=== PATIENT | female | born 1945 | race Caucasian/White ===

== ENCOUNTER 2023-08-20 12:50 | Outpatient (AMB) | payer MEDICARE, SELFPAY ==
--- NOTE | 2023-08-20 13:16 | HO.SPINEOV ---
Intake Intake Visit Reasons: sx 12/2021 f/u Intake Note: Ms. Eagle is here today to follow up pain. Surgery done 12/2021 @ [place]. Certified Travel Counselor Required: No Assessment & Plan Assessment & Plan (1) Dizziness of unknown etiology: Code(s): R42 - Dizziness and giddiness Plan Dear colleague, On 08/20/2023, I saw Debbie Eagle for dizziness. She had previous degenerative scoliosis corrected last year with good results. I remember that she had some from her arrhythmia postoperatively. She states that in May of last year she developed acute dizziness where the room was spinning. No other symptoms. She was evaluated by ENT and Neurology at [facility]. She was diagnosed with a trochlear nerve palsy and polyneuropathy. She comes to see me for advice. I explained to her that polyneuropathy is not causing acute dizziness. Apparently no MRI of the brain was performed despite a trochlear palsy and acute dizziness. Her symptoms remain stable. No new symptoms have developed. On exam there is a nystagmus. No diplopia with corrective glasses. Romberg is negative. I offered to order an MRI of the brain to rule out a small infarcted may have happened resulting acute dizziness and trochlear nerve palsy. She will call my office for the results. I spent 25 minutes in this consult for preparation, exam and discussing plan of care. Reji Boyer MD, PhD Spine Fellowship Trained Neurosurgeon Director, [facility] Orders: Orders MR head/brain wo/w con Today R42 - Dizziness and giddiness Coding Level of Care Code Est Pt Level 4 (49259) Diagnoses Dizziness of unknown etiology R42
== END 2023-08-20 13:47 | disposition home or self-care (01) ==
PROVIDERS: Visit Provider Neurological Surgery
DX: R42 Dizziness and giddiness (principal)
CPT/HCPCS: 99214

== ENCOUNTER → 2023-08-20 12:50 | Outpatient (BNVA) | payer MEDICARE, SELFPAY | PROVIDERS: Visit Provider Neurological Surgery | DX: R42 Dizziness and giddiness (principal) | CPT/HCPCS: 99212 ==

== ENCOUNTER 2023-10-08 11:01 | Outpatient (REF) | payer MEDICARE, SELFPAY ==
--- NOTE | ~2023-10-08 | MR_ITS ---
EXAMINATION: MR BRAIN WITHOUT AND WITH CONTRAST CLINICAL INFORMATION: Dizziness, blurred/double vision COMPARISON: None TECHNIQUE: Multiplanar multisequence MR imaging of the brain was obtained without and following the administration of 10 mL Gadavist intravenous contrast. FINDINGS: There is no acute infarct on diffusion-weighted imaging. There is no intracranial hemorrhage on iron-sensitive imaging. No extra-axial collection or mass effect/herniation. Patchy periventricular, deep white matter, and brainstem T2 FLAIR hyperintensities consistent with moderate underlying microangiopathy. Chronic lacunar infarcts involving the right posterior subinsular region and right cerebellum. There is asymmetric widening of the anterior interhemispheric fissure to the right of the falx with mild lateral displacement of the right frontal lobe which may reflect the presence of an arachnoid cyst. This region measures up to 4.8 x 1.5 cm in maximal axial dimensions. No hydrocephalus. Mild generalized cerebral volume loss with commensurate sulcal and ventricular prominence. No abnormal parenchymal or extra-axial enhancement. The major flow voids at the skull base are preserved. The midline structures are normal. The cerebellar tonsils are normally positioned. The craniocervical junction is normal. Marrow signal is within normal limits. The visualized soft tissues are without significant abnormality. No signal abnormality within the paranasal sinuses or within the mastoid air cells. MR/MR head/brain wo/w con IMPRESSION: 1. No acute intracranial abnormality. 2. Mild generalized volume loss and moderate chronic white matter microangiopathy. 3. Asymmetric widening of the anterior interhemispheric fissure to the right of the falx with mild lateral displacement of the right frontal lobe which may reflect the presence of an arachnoid cyst.
[2023-10-08] MEDS: gadobutroL 10 ML VIAL IVPUSH (12:07)
== END 2023-10-08 11:02 | disposition home or self-care (01) ==
LOC: HO.MRI 11:01
PROVIDERS: Visit Provider Neurological Surgery
DX: R42 Dizziness and giddiness (principal)
CPT/HCPCS: 70553; A9585